=== PATIENT | female | born 1975 | race Two or more races ===

== ENCOUNTER 2016-11-03 06:08 | Emergency (ER) | payer OTHER ==
[2016-11-03 06:46] VITALS: BP 137/68; PULSE 77; TEMP 97.9; BMI 32.1
--- NOTE | 2016-11-03 07:23 | PDOC ---
History of Present Illness - General Chief Complaint: Pain, Acute Stated Complaint: NECK PAIN Time Seen by Provider: 11/03/16 07:21 History Source: Patient Exam Limitations: No Limitations - History of Present Illness Initial Comments: CHIEF COMPLAINT: HISTORY OF PRESENT ILLNESS: Vital signs on arrival are within normal limits. REVIEW OF SYSTEMS: GENERAL/CONSTITUTIONAL: Subjective fever/chills. No weakness. No weight change. HEAD, EYES, EARS, NOSE AND THROAT: No change in vision. No ear pain or discharge. No sore throat. MUSCULOSKELETAL: No joint or muscle swelling or pain. No neck or back pain. SKIN: No rash or easy bruising. NEUROLOGIC: No headache, vertigo, loss of consciousness, or loss of sensation. PHYSICAL EXAM: GENERAL: The patient is awake, alert, and fully oriented, in no acute distress. HEAD: Normal with no signs of trauma. ENT: Pupils equal, round and reactive to light, extraocular movements intact, sclera anicteric, conjunctiva clear. Neck supple. EXTREMITIES: Normal range of motion, no edema. NEUROLOGICAL: Normal speech, normal gait. CN II-XII grossly intact. PSYCH: Normal mood, normal affect. SKIN: Warm, dry, normal turgor, no rashes or lesions noted. Past History - Past Medical History Allergies/Adverse Reactions: Allergies Allergy/AdvReac Type Severity Reaction Status Date / Time No Known Allergies Allergy Verified 11/03/16 06:15 Home Medications: Ambulatory Orders NK [No Known Home Medication] 11/03/16 - Reproductive History (#): 6 Para: 4 Therapeutic (s) & number: Yes (2 elective) - Immunization History Td Vaccination: Yes Immunization Up to Date: Yes (flu) - Psycho/Social/Smoking Cessation Hx Anxiety: No Suicidal Ideation: No Smoking Status: No Smoking History: Current every day smoker Number of Cigarettes Smoked Daily: 10 Information on smoking cessation initiated: No Hx Alcohol Use: No Drug/Substance Use Hx: No Substance Use Type: None *Physical Exam - Vital Signs Last Vital Signs Temp Pulse Resp BP Pulse Ox 97.9 F 77 14 137/68 99 11/03/16 06:15 11/03/16 06:15 11/03/16 06:15 11/03/16 06:15 11/03/16 06:15 Medical Decision Making - Medical Decision Making A/P:
--- NOTE | 2016-11-03 08:05 | PDOC ---
History of Present Illness - General Chief Complaint: Pain, Acute Stated Complaint: NECK PAIN Time Seen by Provider: 11/03/16 07:21 History Source: Patient Exam Limitations: No Limitations - History of Present Illness Initial Comments: CHIEF COMPLAINT: 41 y/o afebrile female with no significant PMH c/o left sided neck pain radiating down her left arm x 1 week. HISTORY OF PRESENT ILLNESS: The patient states she does a lot of heavy lifting and last week while lifting something she started feeling the pain in the left side of her neck. Over the past 1 week she has continued to lift despite the pain. She states she took Motrin for 1 day in the middle of the week. She denies trauma, f/c, n/v/d, CP, SOB, numbness/tingling in extremities. Vital signs on arrival are within normal limits. REVIEW OF SYSTEMS: GENERAL/CONSTITUTIONAL: No fever/chills. No weakness. No weight change. HEAD, EYES, EARS, NOSE AND THROAT: No change in vision. No ear pain or discharge. No sore throat. MUSCULOSKELETAL: +left arm pain. No back pain. +left sided neck pain. SKIN: No rash or easy bruising. NEUROLOGIC: No headache, vertigo, loss of consciousness, or loss of sensation. PHYSICAL EXAM: GENERAL: The patient is awake, alert, and fully oriented, in no acute distress. She is well appearing and ambulatory. HEAD: Normal with no signs of trauma. NECK: No midline cervical spine TTP or step offs. Reproducible pain with palpation of left cervical paravertebral muscles at level of C5-C6. ENT: Pupils equal, round and reactive to light, extraocular movements intact, sclera anicteric, conjunctiva clear. Neck supple. EXTREMITIES: Normal range of motion, no edema. NEUROLOGICAL: Normal speech, normal gait. CN II-XII grossly intact. SKIN: Warm, dry, normal turgor, no rashes or lesions noted. Past History - Past Medical History Allergies/Adverse Reactions: Allergies Allergy/AdvReac Type Severity Reaction Status Date / Time No Known Allergies Allergy Verified 11/03/16 06:15 Home Medications: Ambulatory Orders NK [No Known Home Medication] 11/03/16 - Reproductive History (#): 6 Para: 4 Therapeutic (s) & number: Yes (2 elective) - Immunization History Td Vaccination: Yes Immunization Up to Date: Yes (flu) - Psycho/Social/Smoking Cessation Hx Anxiety: No Suicidal Ideation: No Smoking Status: No Smoking History: Current every day smoker Number of Cigarettes Smoked Daily: 10 Information on smoking cessation initiated: No Hx Alcohol Use: No Drug/Substance Use Hx: No Substance Use Type: None *Physical Exam - Vital Signs Last Vital Signs Temp Pulse Resp BP Pulse Ox 97.9 F 77 14 137/68 99 11/03/16 06:15 11/03/16 06:15 11/03/16 06:15 11/03/16 06:15 11/03/16 06:15 Medical Decision Making - Medical Decision Making A/P: 41 y/o female with cervical radiculopathy. The patient does not want to wait for hcg. Provided discharge instructions including 600mg of Motrin every 6 hours with food, no heavy lifting, massage/heat to the affected area and f/u with the patient's PCP this week if no improvement in symptoms. The patient verbalizes understanding of all instructions, has no further questions and is awaiting discharge. *DC/Admit/Observation/Transfer Diagnosis at time of Disposition: Cervical radiculopathy - Discharge Dispostion Disposition: HOME Condition at time of disposition: Good - Referrals Referrals: Stefany Wills [Primary Care Provider] - - Patient Instructions Printed Discharge Instructions: DI for Cervical Radiculopathy Additional Instructions: Discharge Instructions: -Take 600mg of over the counter Ibuprofen every 6 hours for pain with food -Apply heat and massage to the affected area to help with pain -Avoid heavy lifting until symptoms improved -Follow up with your doctor in 5-7 days if no improvement in symptoms
== END 2016-11-03 08:17 | disposition home or self-care (01) ==
LOC: JER 06:08
DX: M54.12 Radiculopathy, cervical region (principal)
CPT/HCPCS: 84703; 99282-25

== ENCOUNTER 2017-01-14 09:01 | Emergency (ER) | payer OTHER ==
[2017-01-14 09:06] VITALS: BP 134/89; PULSE 78; TEMP 98.4; BMI 32.4
[2017-01-14] MEDS ORDERED: ALBUTEROL SO4 2.5/IPRATROPIUM 0.5 INH SOL 3 ML VIAL.NEB. NEB STA (09:35)
[2017-01-14] MEDS ORDERED: ALBUTEROL SO4 2.5/IPRATROPIUM 0.5 INH SOL 3 ML VIAL.NEB. NEB ONE ×3 (10:26→11:03)
[2017-01-14] MEDS ORDERED: predniSONE 20 MG TABLET (UD) PO ONE (10:59)
[2017-01-14] MEDS ORDERED: predniSONE 20 MG TABLET (UD) ONE (11:02)
--- NOTE | 2017-01-14 11:32 | PDOC ---
History of Present Illness - General Chief Complaint: Asthma Stated Complaint: ASTHMA Time Seen by Provider: 01/14/17 09:19 History Source: Patient Exam Limitations: No Limitations - History of Present Illness Initial Comments: 01/14/17 11:24 42 yr female with c/o cough wheezing for one week. Pt has history of asthma , no intubations. Pt denies fever or sick contacts. Timing/Duration: reports: week Severity: reports: moderate Possible Cause: Yes: occasional episodes Past History - Past Medical History Allergies/Adverse Reactions: Allergies Allergy/AdvReac Type Severity Reaction Status Date / Time No Known Allergies Allergy Verified 01/14/17 09:06 Home Medications: Ambulatory Orders Albuterol Sulfate Inhaler - [Ventolin HFA Inhaler -] 1 - 2 inh PO Q4H #1 inhaler 01/14/17 Azithromycin [Zithromax 250mg Tablets -] 250 mg PO UTDICT #6 tab 01/14/17 Prednisone [Deltasone -] 40 mg PO DAILY #10 tablet 01/14/17 Asthma: Yes - Reproductive History LMP comment: 01/06/17 LMP Normal: Yes Is Patient Now?: No (#): 6 Para: 4 Therapeutic (s) & number: Yes (2 elective) - Immunization History Td Vaccination: Yes Immunization Up to Date: Yes (flu) - Psycho/Social/Smoking Cessation Hx Anxiety: No Suicidal Ideation: No Smoking Status: No Smoking History: Current every day smoker Number of Cigarettes Smoked Daily: 10 Information on smoking cessation initiated: No Hx Alcohol Use: Yes (SOCIAL) Drug/Substance Use Hx: No Substance Use Type: None Respiratory Specific PMHX - Complaint Specific PMHX Angina: No Bronchitis: No Pneumonia: No Pulmonary Embolus: No TB (Tuberculosis): No Review of Systems - Review of Systems Able to Perform ROS?: Yes Is the patient limited Turkish proficient: No Constitutional: No: Symptoms Reported HEENTM: No: Symptoms Reported Respiratory: Yes: Cough *Physical Exam - Vital Signs Last Vital Signs Temp Pulse Resp BP Pulse Ox 98.4 F 78 18 134/89 98 01/14/17 09:03 01/14/17 09:03 01/14/17 09:03 01/14/17 09:03 01/14/17 09:03 - Physical Exam General Appearance: Yes: Nourished, Appropriately Dressed HEENT: positive: EOMI, NICOLA, Normal ENT Inspection, TMs Normal, Pharynx Normal Neck: positive: Supple Respiratory/Chest: positive: Normal Breath Sounds, Rhonchi, Wheezing Cardiovascular: positive: Regular Rhythm, Regular Rate ED Treatment Course - Medications Given in the ED: ED Medications Discontinued Medications Generic Name Dose Route Start Last Admin Trade Name Socrates PRN Reason Stop Dose Admin Albuterol/Ipratropium 1 amp 01/14/17 09:35 01/14/17 09:38 Duoneb - NEB 01/14/17 09:36 1 amp Q15M STA Administration Albuterol/Ipratropium 1 amp 01/14/17 10:59 01/14/17 11:04 Duoneb - NEB 01/14/17 11:00 1 amp ONCE ONE Administration Prednisone 60 mg 01/14/17 10:59 01/14/17 11:04 Deltasone - PO 01/14/17 11:00 60 mg ONCE ONE Administration Progress Note - Progress Note Progress Note: pt improved after the nebulizers will dc home with strict follow up pt understands the plan of care Medical Decision Making - Medical Decision Making 01/16/17 07:25 cc: wheezing, cough , afebrile no acute distress, stable vitals *DC/Admit/Observation/Transfer Diagnosis at time of Disposition: Bronchitis - Discharge Dispostion Disposition: HOME Condition at time of disposition: Good - Prescriptions Prescriptions: Prednisone [Deltasone -] 40 mg PO DAILY #10 tablet Albuterol Sulfate Inhaler - [Ventolin HFA Inhaler -] 1 - 2 inh PO Q4H #1 inhaler Azithromycin [Zithromax 250mg Tablets -] 250 mg PO UTDICT #6 tab - Referrals Referrals: Stefany Wills [Primary Care Provider] - - Patient Instructions Additional Instructions: use the inhaler as directed take next dose of prednisone tomorrow morning start the Zpack today drink pleanty of fluids to stay hydrated follow with your doctor in 1-3 days for follow up rest at home and also take motrin as needed for any pain return to ER if any worsening symptoms
== END 2017-01-14 11:39 | disposition home or self-care (01) ==
LOC: JERFT 09:01
PROC: 3E0F7GC Introduction of Other Therapeutic Substance into Respiratory Tract, Via Natural or Artificial Opening (ICD-10-PCS; principal; 2017-01-14)
PROC: 3E0F7GC Introduction of Other Therapeutic Substance into Respiratory Tract, Via Natural or Artificial Opening (ICD-10-PCS; 2017-01-14)
DX: J20.9 Acute bronchitis, unspecified (principal); J45.909 Unspecified asthma, uncomplicated
CPT/HCPCS: 94640; 99281-25

== ENCOUNTER 2018-03-22 11:45 | Emergency (ER) | payer OTHER ==
[2018-03-22 11:53] VITALS: BP 135/77; PULSE 79; TEMP 98; BMI 31.3
--- NOTE | 2018-03-22 12:18 | PDOC ---
History of Present Illness - General Chief Complaint: Urinary Problem Stated Complaint: URINARY PROBLEM Time Seen by Provider: 03/22/18 12:02 History Source: Patient Exam Limitations: No Limitations - History of Present Illness Initial Comments: CHIEF COMPLAINT: 43 y/o afebrile female with no significant PMH c/o dysuria x 1 week. HISTORY OF PRESENT ILLNESS: She is unsure if the bleeding is coming from the urine or because she is currently menstruating. She denies fever, chills, n/v/d , CP, SOB, abd pain, back pain, abnormal vaginal discharge, genital lesions. Vital signs on arrival are within normal limits. REVIEW OF SYSTEMS: GENERAL/CONSTITUTIONAL: No fever GASTROINTESTINAL: No abd pain. GENITOURINARY: +dysuria. MUSCULOSKELETAL: No joint or muscle swelling or pain. No neck or back pain. PHYSICAL EXAM: GENERAL: The patient is awake, alert, and fully oriented, in no acute distress. She is well appearing and ambulatory. HEAD: Normal with no signs of trauma. ABDOMEN: Soft, non-distended, non-tender even to deep palpation, no hepatomegaly or splenomegaly, no masses. No flank pain with palpation. BACK: No CVA TTP b/l. Past History - Past Medical History Allergies/Adverse Reactions: Allergies Allergy/AdvReac Type Severity Reaction Status Date / Time No Known Allergies Allergy Verified 03/22/18 11:53 Home Medications: Ambulatory Orders Nitrofurantoin Monohyd/M-Cryst [Macrobid -] 100 mg PO BID #14 capsule 03/22/18 Asthma: Yes COPD: No - Reproductive History (#): 6 Para: 4 Therapeutic (s) & number: Yes (2 elective) - Immunization History Td Vaccination: Yes Immunization Up to Date: Yes (flu) - Suicide/Smoking/Psychosocial Hx Smoking Status: No Smoking History: Current every day smoker Number of Cigarettes Smoked Daily: 20 Information on smoking cessation initiated: No Hx Alcohol Use: Yes (SOCIAL) Drug/Substance Use Hx: No Substance Use Type: None *Physical Exam - Vital Signs Last Vital Signs Temp Pulse Resp BP Pulse Ox 98 F 79 18 135/77 100 03/22/18 11:52 03/22/18 11:52 03/22/18 11:52 03/22/18 11:52 03/22/18 11:52 Medical Decision Making - Medical Decision Making A/P: 43 y/o female with dysuria x 1 week. She is concerned for UTI and is requesting STD testing. Plan is as follows: 1. UA/hcg/culture 2. GC/chlamydia hcg - negative UA + for UTI. Will send rx for macrobid. Patient does not want to be treated for STD at this time - would prefer to wait for results. Patient instructed to drink at least 64oz of water daily, follow up with Dr. Wills next week and return to the ER with any worsening or concerning symptoms. The patient verbalizes understanding of all instructions, has no further questions and is awaiting discharge. *DC/Admit/Observation/Transfer Diagnosis at time of Disposition: UTI (urinary tract infection) Qualifiers: Urinary tract infection type: acute cystitis Hematuria presence: with hematuria Qualified Code(s): N30.01 - Acute cystitis with hematuria - Discharge Dispostion Disposition: HOME Condition at time of disposition: Good - Prescriptions Prescriptions: Nitrofurantoin Monohyd/M-Cryst [Macrobid -] 100 mg PO BID #14 capsule - Referrals Referrals: Stefany Wills [Primary Care Provider] - - Patient Instructions Printed Discharge Instructions: DI for Urinary Tract Infection (UTI) Additional Instructions: Discharge Instructions: -You have a urinary tract infection -A prescription for antibiotics has been sent to your pharmacy; please take for entire 7 days -Drink at least 64oz of water daily -Follow up with Dr. Wills within 1 week -Return to the ER with any worsening or concerning symptoms. - Post Discharge Activity
[2018-03-22 12:57] LABS: URINE APPEARANCE SLCLOUDY; URINE BILIRUBIN NEGATIVE (<2.0 mg/dL); URINE BLOOD 1+ (NEGATIVE); URINE COLOR LTYELLOW; URINE GLUCOSE (UA) NEGATIVE (NEGATIVE); URINE KETONE NEGATIVE (NEGATIVE); URINE NITRITE NEGATIVE (NEGATIVE); URINE UROBILINOGEN NEGATIVE mg/dL (0.2-1.0)
[2018-03-22 13:01] LABS: HCG,QUALITATIVE URINE NEGATIVE
[2018-03-22 13:03] LABS: URINE LEUK ESTERASE 2+ (NEGATIVE); URINE PROTEIN 2+ (NEGATIVE)
[2018-03-22 13:05] LABS: EPI CELLS RARE /HPF (FEW); URINE MUCUS RARE
== END 2018-03-22 13:26 | disposition home or self-care (01) ==
LOC: JERFT 11:45
DX: N30.01 Acute cystitis with hematuria (principal)
CPT/HCPCS: 36415; 81003; 81015; 84703; 87086; 87491; 87591; 99281-25

== ENCOUNTER 2021-07-03 08:21 | Emergency (ER) | payer OTHER ==
[2021-07-03 08:29] VITALS: BP 138/61; PULSE 70; TEMP 98.4; BMI 34.2
[2021-07-03] MEDS ORDERED: ALBUTEROL SO4 2.5/IPRATROPIUM 0.5 INH SOL 3 ML VIAL.NEB. NEB ONE (09:41)
== END 2021-07-03 10:10 | disposition home or self-care (01) ==
LOC: JER 08:21
PROC: 3E0F7GC Introduction of Other Therapeutic Substance into Respiratory Tract, Via Natural or Artificial Opening (ICD-10-PCS; principal; 2021-07-03)
DX: H10.13 Acute atopic conjunctivitis, bilateral (principal); J06.9 Acute upper respiratory infection, unspecified; R05 Cough; Z11.52 Encounter for screening for COVID-19
CPT/HCPCS: 71046-TC-FY; 99284-25; C9803; U0003; U0005

== ENCOUNTER 2021-07-24 20:18 | Emergency (ER) | payer OTHER ==
[2021-07-24 21:08] VITALS: BP 121/59; PULSE 85; TEMP 98.6; BMI 39.0
[2021-07-24 21:19] LABS: BASO % 0.7 % (0-2.0); EOS % 2.9 % (0-4.5); HEMATOCRIT 30.4 % (32.4-45.2); HEMOGLOBIN 9.4 GM/dL (10.7-15.3); MCHC 30.9 g/dl (32.0-36.0); MEAN CELL VOLUME 61.1 fl (80-96); MEAN PLT VOLUME 8.2 fl (7.5-11.1); MONO % 10.5 % (3.8-10.2); NEUT % 66.9 % (42.8-82.8); PLATELET COUNT 389 10^3/uL (134-434); RBC 4.98 M/mm3 (3.60-5.2); WHITE BLOOD COUNT 11.8 K/mm3 (4.0-10.0)
[2021-07-24 21:25] LABS: MCH 18.9 pg (25.7-33.7)
[2021-07-24 21:42] LABS: ANISOCYTOSIS 3+; MACROCYTOSIS 1+; PLATELET ESTIMATE NORMAL
[2021-07-24 21:46] LABS: CALCIUM 8.6 mg/dL (8.5-10.1)
[2021-07-24 21:47] LABS: ALBUMIN 2.9 g/dl (3.4-5.0); BLOOD UREA NITROGEN 8.8 mg/dL (7-18)
[2021-07-24 21:50] LABS: CREATININE 0.7 mg/dL (0.55-1.3)
[2021-07-24 21:51] LABS: BILIRUBIN,TOTAL 0.2 mg/dL (0.2-1); TOT PROT 6.9 g/dl (6.4-8.2)
[2021-07-24 21:58] LABS: EPI CELLS 6 /uL (0-25.1); HYALINE CASTS 0 /uL (0-3.1); URINE APPEARANCE CLEAR; URINE BACTERIA 65 /uL (0-1359); URINE BILIRUBIN NEGATIVE (NEGATIVE); URINE COLOR YELLOW; URINE GLUCOSE (UA) NEGATIVE (NEGATIVE); URINE KETONE NEGATIVE (NEGATIVE); URINE LEUK ESTERASE NEGATIVE (NEGATIVE); URINE NITRITE NEGATIVE (NEGATIVE); URINE PROTEIN 1+ (NEGATIVE); URINE RBC 3 /uL (0-23.9); URINE WBC 2 /uL (0-25.8)
[2021-07-24 22:02] LABS: HCG,QUALITATIVE URINE Negative
== END 2021-07-24 22:29 | disposition home or self-care (01) ==
LOC: JER 20:18 → JERFT 20:18
DX: R05.1 Acute cough (principal); J06.9 Acute upper respiratory infection, unspecified; Z11.52 Encounter for screening for COVID-19
CPT/HCPCS: 36415; 80053; 81003; 83690; 84703; 85025; 87086; 99283-25; C9803; U0003; U0005

== ENCOUNTER 2021-09-22 03:12 | Emergency (ER) | payer OTHER ==
[2021-09-22 03:21] VITALS: BP 141/85; PULSE 80; TEMP 98.1; BMI 31.3
[2021-09-22] MEDS ORDERED: ALBUTEROL SO4 HFA INHALER IH PRN (03:59)
[2021-09-22] MEDS ORDERED: ALBUTEROL SO4 HFA INHALER IH ONE (04:11)
[2021-09-22] MEDS ORDERED: IBUPROFEN 600 MG TABLET (FP) PO ONE ×2 (04:20→04:21)
== END 2021-09-22 05:30 | disposition home or self-care (01) ==
LOC: JER 03:12
PROC: 3E0F7GC Introduction of Other Therapeutic Substance into Respiratory Tract, Via Natural or Artificial Opening (ICD-10-PCS; principal; 2021-09-22)
DX: J06.9 Acute upper respiratory infection, unspecified (principal)
CPT/HCPCS: 87804; 87807; 99284-25; C9803; U0003; U0005

== ENCOUNTER 2022-09-02 12:47 | Inpatient (IN) | payer OTHER ==
[2022-09-02] MEDS ORDERED: ALBUTEROL SO4 2.5/IPRATROPIUM 0.5 INH SOL 3 ML VIAL.NEB. NEB ONE (14:07)
[2022-09-02] MEDS: ALBUTEROL SO4 2.5/IPRATROPIUM 0.5 INH SOL 3 ML VIAL.NEB. NEB SCH ×4 (14:40→15:12)
[2022-09-02 15:07] LABS: HEMATOCRIT 23.2 % (32.4-45.2); LYMPH % 9.7 % (8-40); MCHC 30.2 g/dl (32.0-36.0); MEAN CELL VOLUME 53.5 fl (80-96); MEAN PLT VOLUME 8.2 fl (7.5-11.1); MONO % 4.9 % (3.8-10.2); NEUT % 84.4 % (42.8-82.8); PLATELET COUNT 376 10^3/uL (134-434); RBC 4.34 M/mm3 (3.60-5.2); RDW 21.5 % (11.6-15.6); WHITE BLOOD COUNT 10.3 K/mm3 (4.0-10.0)
[2022-09-02 15:08] LABS: MCH 16.2 pg (25.7-33.7)
[2022-09-02 15:26] LABS: INR 1.03 (0.83-1.09); PROTHROMBIN TIME (PATIENT) 11.9 SEC (9.7-13.0)
[2022-09-02 15:28] LABS: ACTIVATED PTT 28.5 SECONDS (25.2-36.5)
[2022-09-02 15:33] LABS: CHLORIDE 107 mmol/L (98-107); SODIUM 141 mmol/L (136-145)
[2022-09-02 15:36] LABS: ALBUMIN 3.2 g/dl (3.4-5.0); ANION GAP 8 MMOL/L (8-16); CO2 26 mmol/L (21-32); GLUCOSE,RANDOM 84 mg/dL (74-106); LIPASE 141 U/L (73-393)
[2022-09-02 15:37] LABS: BLOOD UREA NITROGEN 9.1 mg/dL (7-18)
[2022-09-02 15:39] LABS: CREATININE 0.7 mg/dL (0.55-1.3); SGOT/AST 14 U/L (15-37); SGPT/ALT 17 U/L (13-61)
[2022-09-02 15:40] LABS: ANISOCYTOSIS 3+; MACROCYTOSIS 0; PLATELET ESTIMATE INCREASED
[2022-09-02 15:42] LABS: ALK PHOS 66 U/L (45-117); BILIRUBIN,TOTAL 0.2 mg/dL (0.2-1); TOT PROT 6.5 g/dl (6.4-8.2)
[2022-09-02] MEDS ORDERED: ACETAMINOPHEN 1000 MG/100 ML BAG IVPB ONE (16:50)
[2022-09-02] MEDS ORDERED: ACETAMINOPHEN INJECTION 100 ML IVPB ONE (16:50)
[2022-09-02] MEDS ORDERED: diphenhydrAMINE HCL 25 MG CAPSULE (FP) PO ONE ×2 (19:43→20:20)
[2022-09-02 22:32] LABS: LDH 193 U/L (84-246)
[2022-09-02 22:33] LABS: IRON SERUM 14 ug/dL (50-175); TOTAL IRON BINDING CAPACITY 427 ug/dL (250-450)
[2022-09-02 22:43] LABS: RETICULOCYTES 1.69 % (0.5-1.5)
[2022-09-02] MEDS: PANTOPRAZOLE SODIUM 40 MG VIAL IVPUSH SCH (23:24)
[2022-09-02] MEDS ORDERED: ACETAMINOPHEN 325 MG TABLET (FP) PO PRN (23:58)
[2022-09-03 07:28] LABS: BASO % 0.8 % (0-2.0); EOS % 2.6 % (0-4.5); HEMATOCRIT 25.2 % (32.4-45.2); LYMPH % 22.7 % (8-40); MCHC 31.7 g/dl (32.0-36.0); MEAN CELL VOLUME 57.1 fl (80-96); MEAN PLT VOLUME 8.3 fl (7.5-11.1); MONO % 14.1 % (3.8-10.2); NEUT % 59.8 % (42.8-82.8); PLATELET COUNT 340 10^3/uL (134-434); RBC 4.42 M/mm3 (3.60-5.2); WHITE BLOOD COUNT 7.8 K/mm3 (4.0-10.0)
[2022-09-03 07:34] LABS: MCH 18.1 pg (25.7-33.7)
[2022-09-03 07:43] LABS: BLOOD UREA NITROGEN 5.6 mg/dL (7-18); CALCIUM 7.8 mg/dL (8.5-10.1)
[2022-09-03 07:47] LABS: CREATININE 0.6 mg/dL (0.55-1.3); PHOSPHOROUS 2.9 mg/dL (2.5-4.9)
[2022-09-03 07:48] LABS: BILIRUBIN,TOTAL 0.3 mg/dL (0.2-1); TOT PROT 6.1 g/dl (6.4-8.2)
[2022-09-03] MEDS ORDERED: OSELTAMIVIR PHOSPHATE 75 MG CAPSULE PO ONE (09:00)
[2022-09-03] MEDS ORDERED: PANTOPRAZOLE SODIUM 40 MG VIAL ONE (10:56)
[2022-09-03] MEDS ORDERED: NICOTINE 7 MG/24 HOURS TOPICAL PATCH TD ONE (10:56)
[2022-09-03] MEDS: NICOTINE 7 MG/24 HOURS TOPICAL PATCH TD SCH (11:00)
[2022-09-03] MEDS ORDERED: IRON SUCROSE INJECTION 200 MG in SODIUM CHLORIDE 90 ML IVPB ONE (12:00)
[2022-09-03] MEDS: PANTOPRAZOLE SODIUM 40 MG VIAL IVPUSH SCH (12:08)
[2022-09-03] MEDS ORDERED: FAMOTIDINE 20 MG TABLET ONE (13:17)
[2022-09-03] MEDS: FAMOTIDINE 20 MG TABLET PO SCH (13:18)
[2022-09-03] MEDS ORDERED: BISACODYL 5 MG TABLET.DR (FP) PO ONE (16:00)
[2022-09-03] MEDS ORDERED: PEG 3350/NA SULF BICARB CL/KCL 4000 ML SOLN.RECON PO ONE (17:00)
[2022-09-03] MEDS ORDERED: PIPERACILLIN/TAZOB 3.375 GM 3.375 GM/50 ML BAG IVPB ONE (17:09)
[2022-09-03] MEDS: PIPERACILLIN/TAZOB 3.375 GM 3.375 GM in DEXTROSE 5%-WATER - 50 ML IVPB SCH (17:13)
[2022-09-03] MEDS: busPIRone HCL 10 MG TABLET (FP) PO SCH (22:27)
[2022-09-04] MEDS: PIPERACILLIN/TAZOB 3.375 GM 3.375 GM in DEXTROSE 5%-WATER - 50 ML IVPB SCH ×3 (01:44→18:54)
[2022-09-04 05:46] VITALS: BMI 27.1
[2022-09-04] MEDS ORDERED: IRON SUCROSE INJECTION 200 MG in SODIUM CHLORIDE 90 ML IVPB ONE (08:00)
[2022-09-04] MEDS: FAMOTIDINE 20 MG TABLET PO SCH (09:38)
[2022-09-04] MEDS: busPIRone HCL 10 MG TABLET (FP) PO SCH ×2 (09:38→22:07)
[2022-09-04 10:56] LABS: BASO % 0.7 % (0-2.0); EOS % 4.4 % (0-4.5); HEMATOCRIT 28.2 % (32.4-45.2); HEMOGLOBIN 8.6 GM/dL (10.7-15.3); MCHC 30.4 g/dl (32.0-36.0); MEAN CELL VOLUME 57.3 fl (80-96); MEAN PLT VOLUME 8.7 fl (7.5-11.1); NEUT % 60.9 % (42.8-82.8); PLATELET COUNT 413 10^3/uL (134-434); RBC 4.92 M/mm3 (3.60-5.2); RDW 23.2 % (11.6-15.6); WHITE BLOOD COUNT 8.3 K/mm3 (4.0-10.0)
[2022-09-04 10:57] LABS: MCH 17.5 pg (25.7-33.7)
[2022-09-04 11:03] LABS: INR 1.18 (0.83-1.09); PROTHROMBIN TIME (PATIENT) 13.6 SEC (9.7-13.0)
[2022-09-04 11:24] LABS: CALCIUM 8.6 mg/dL (8.5-10.1)
[2022-09-04 11:25] LABS: BLOOD UREA NITROGEN 4.3 mg/dL (7-18)
[2022-09-04 11:28] LABS: CREATININE 0.7 mg/dL (0.55-1.3)
[2022-09-04] MEDS: NICOTINE 7 MG/24 HOURS TOPICAL PATCH TD SCH (16:12)
[2022-09-05] MEDS: PIPERACILLIN/TAZOB 3.375 GM 3.375 GM in DEXTROSE 5%-WATER - 50 ML IVPB SCH ×3 (01:26→17:33)
[2022-09-05] MEDS ORDERED: IRON SUCROSE INJECTION 200 MG in SODIUM CHLORIDE 90 ML IVPB ONE (08:00)
[2022-09-05 10:51] LABS: HEMATOCRIT 30.8 % (32.4-45.2); HEMOGLOBIN 9.1 GM/dL (10.7-15.3); MCHC 29.6 g/dl (32.0-36.0); MEAN CELL VOLUME 58.2 fl (80-96); MEAN PLT VOLUME 8.7 fl (7.5-11.1); PLATELET COUNT 494 10^3/uL (134-434); RBC 5.29 M/mm3 (3.60-5.2); RDW 23.2 % (11.6-15.6); WHITE BLOOD COUNT 9.8 K/mm3 (4.0-10.0)
[2022-09-05 10:52] LABS: MCH 17.2 pg (25.7-33.7)
[2022-09-05] MEDS: FAMOTIDINE 20 MG TABLET PO SCH (11:26)
[2022-09-05] MEDS: busPIRone HCL 10 MG TABLET (FP) PO SCH ×2 (11:27→22:24)
[2022-09-05] MEDS: NICOTINE 7 MG/24 HOURS TOPICAL PATCH TD SCH (11:28)
[2022-09-05] MEDS: OSELTAMIVIR PHOSPHATE 75 MG CAPSULE PO SCH ×2 (11:42→22:24)
[2022-09-06] MEDS: PIPERACILLIN/TAZOB 3.375 GM 3.375 GM in DEXTROSE 5%-WATER - 50 ML IVPB SCH ×2 (03:00→11:12)
[2022-09-06] MEDS: OSELTAMIVIR PHOSPHATE 75 MG CAPSULE PO SCH ×2 (11:11→21:31)
[2022-09-06] MEDS: busPIRone HCL 10 MG TABLET (FP) PO SCH ×2 (11:11→21:31)
[2022-09-06] MEDS: FAMOTIDINE 20 MG TABLET PO SCH (11:11)
[2022-09-06] MEDS: NICOTINE 7 MG/24 HOURS TOPICAL PATCH TD SCH (11:12)
[2022-09-06] MEDS: POLYETHYLENE GLYCOL (HEALTHYLAX) 3350 17 GM PACKET PO SCH (11:12)
[2022-09-06] MEDS: AMOX TR/POT CLAV 875MG/125MG TABLETS (FP) PO SCH (17:35)
[2022-09-07] MEDS: FAMOTIDINE 20 MG TABLET PO SCH (10:08)
[2022-09-07] MEDS: NICOTINE 7 MG/24 HOURS TOPICAL PATCH TD SCH (10:08)
[2022-09-07] MEDS: AMOX TR/POT CLAV 875MG/125MG TABLETS (FP) PO SCH (10:08)
[2022-09-07] MEDS: busPIRone HCL 10 MG TABLET (FP) PO SCH (10:08)
[2022-09-07] MEDS: POLYETHYLENE GLYCOL (HEALTHYLAX) 3350 17 GM PACKET PO SCH (10:08)
[2022-09-07] MEDS: OSELTAMIVIR PHOSPHATE 75 MG CAPSULE PO SCH (10:08)
[2022-09-07 14:28] VITALS: BP 138/93; PULSE 74; RESP 20; TEMP 98.8
== END 2022-09-07 14:29 | disposition home or self-care (01) | DRG 240 ==
LOC: JER 12:47 → JERBED 20:55 → J8W 09-03 19:16
PROVIDERS: ADMIT Internal Medicine
PROC: 30233N1 Transfusion of Nonautologous Red Blood Cells into Peripheral Vein, Percutaneous Approach (ICD-10-PCS; 2022-09-02)
PROC: 0DBM8ZX Excision of Descending Colon, Via Natural or Artificial Opening Endoscopic, Diagnostic (ICD-10-PCS; principal; 2022-09-04 12:30)
DX: C18.9 Malignant neoplasm of colon, unspecified (principal); J09.X2 Influenza due to identified novel influenza A virus with other respiratory manifestations; D50.9 Iron deficiency anemia, unspecified; F17.210 Nicotine dependence, cigarettes, uncomplicated; K57.92 Diverticulitis of intestine, part unspecified, without perforation or abscess without bleeding; K92.1 Melena; F50.89 Other specified eating disorder; F41.9 Anxiety disorder, unspecified; J45.909 Unspecified asthma, uncomplicated; K64.8 Other hemorrhoids
CPT/HCPCS: 0241U-QW; 36415; 36430; 71045-TC-FY; 71260-TC; 74177-TC; 80048; 80053; 82272; 82378; 82728; 83540; 83550; 83615; 83690; 83735; 84100; 84466; 84702; 85025; 85027; 85045; 85610; 85730; 86140; 86850; 86900; 86901; 86922; 88305-TC; 93005; 93010; 99285-25; G0396; J1756; P9058; Q9967

== ENCOUNTER 2022-09-18 04:16 | Inpatient (IN) | payer OTHER ==
[2022-09-17 10:17] VITALS: BMI 26.6
[~2022-09-18 04:16] MED LIST: BUPIVACAINE HCL/PF 0.25% (2.5MG/ML) 10 ML VIAL IJ ONE
[2022-09-18] MEDS ORDERED: ERTAPENEM SODIUM 1 GM in SODIUM CHLORIDE 50 ML IVPB ONE (06:53)
[2022-09-18] MEDS ORDERED: ERTAPENEM SODIUM 1 GM VIAL ONE (07:18)
[2022-09-18] MEDS ORDERED: ONDANSETRON 4 MG/2 ML VIAL IVPUSH PRN ×2 (10:03→15:21)
[2022-09-18] MEDS ORDERED: BUPIVACAINE HCL/PF 0.25% (2.5MG/ML) 10 ML VIAL ONE (10:10)
[2022-09-18] MEDS ORDERED: INDOCYANINE GREEN 25 MG/10 ML VIAL IVPUSH ONE (10:10)
[2022-09-18] MEDS ORDERED: cefOXitin SODIUM 2 GM VIAL (RESTRICTED TO ID) IVPB ONE ×2 (10:10→11:06)
[2022-09-18] MEDS ORDERED: LACTATED RINGERS SOLUTION 1,000 ML IV SCH (10:15)
[2022-09-18] MEDS ORDERED: HEPARIN NA (PORCINE) 5,000 UNITS/ML 1ML VIAL ONE (10:19)
[2022-09-18] MEDS ORDERED: ALBUTEROL SO4 HFA INHALER IH ONE (10:26)
[2022-09-18] MEDS ORDERED: LIDOCAINE HCL/PF 2% SDV 5ML VIAL ONE (10:27)
[2022-09-18] MEDS ORDERED: MIDAZOLAM HCL 2 MG/2 ML SINGLE DOSE VIAL ONE (10:27)
[2022-09-18] MEDS ORDERED: GLYCOPYRROLATE 0.2 MG/1 ML VIAL ONE ×2 (10:27→11:22)
[2022-09-18] MEDS ORDERED: ONDANSETRON 4 MG/2 ML VIAL ONE ×2 (10:27→15:12)
[2022-09-18] MEDS ORDERED: DEXAMETHASONE SOD PHOSPHATE 4 MG/1 ML VIAL ONE (10:27)
[2022-09-18] MEDS ORDERED: FENTANYL CITRATE/PF 50 MCG/ML VIAL ONE ×9 (10:27→15:51)
[2022-09-18] MEDS ORDERED: PROPOFOL 20 ML ONE ×2 (10:27→14:34)
[2022-09-18] MEDS ORDERED: ROCURONIUM BROMIDE 50 MG/5 ML SYRINGE ONE ×2 (10:57→11:37)
[2022-09-18] MEDS ORDERED: SUCCINYLCHOLINE CHLORIDE 200 MG/10 ML SYRINGE ONE (10:58)
[2022-09-18] MEDS ORDERED: BUPIVACAINE HCL/PF 0.25% (2.5MG/ML) 10 ML VIAL IJ ONE (11:40)
[2022-09-18] MEDS ORDERED: NEOSTIGMINE METHYLSULFATE 0.5 MG/ML - 10 ML MDV ONE (14:04)
[2022-09-18] MEDS ORDERED: KETOROLAC TROMETHAMINE 15 MG/ML VIAL IVPUSH PRN (15:07)
[2022-09-18] MEDS ORDERED: oxyCODONE HCL 5 MG TABLET PO PRN ×2 (15:21→17:19)
[2022-09-18] MEDS ORDERED: PROMETHAZINE HCL 25 MG/1 ML VIAL IVPUSH ONE ×2 (16:05→16:13)
[2022-09-18] MEDS ORDERED: HYDROmorphone HCl 2 MG/ML VIAL IVPUSH PRN ×2 (17:15)
[2022-09-18] MEDS ORDERED: KETOROLAC TROMETHAMINE 30 MG/1 ML VIAL IVPUSH ONE (17:17)
[2022-09-18] MEDS ORDERED: HYDROmorphone HCl 2 MG/ML VIAL IVPUSH ONE ×3 (17:23→19:09)
[2022-09-18] MEDS ORDERED: KETOROLAC TROMETHAMINE 30 MG/1 ML VIAL IM ONE (17:23)
[2022-09-18] MEDS ORDERED: cefOXitin SODIUM 1 GM/10 ML PUSH (RESTRICTED TO ID) IVPUSH SCH (20:00)
[2022-09-18] MEDS: LACTATED RINGERS SOLUTION 1,000 ML/1,000 ML INFUS.BAG IV SCH (20:46)
[2022-09-18] MEDS: ACETAMINOPHEN 1000 MG/100 ML BAG IVPB SCH (20:47)
[2022-09-18] MEDS: CEFOXITIN SODIUM 1 GM in DEXTROSE 5%-WATER 100 ML IVPB SCH (20:47)
[2022-09-18] MEDS ORDERED: ACETAMINOPHEN 1000 MG/100 ML BAG IVPB PRN (21:00)
[2022-09-18] MEDS: MONTELUKAST NA 10 MG TABLET PO SCH (21:01)
[2022-09-18] MEDS: busPIRone HCL 10 MG TABLET (FP) PO SCH (21:01)
[2022-09-18] MEDS: ENOXAPARIN NA (PORCINE) 40 MG/0.4 ML DISP.SYRIN SQ SCH (21:01)
[2022-09-19] MEDS: oxyCODONE HCL 5 MG TABLET PO PRN ×4 (00:38→17:42)
[2022-09-19] MEDS: ACETAMINOPHEN 1000 MG/100 ML BAG IVPB SCH ×4 (01:28→18:27)
[2022-09-19] MEDS: CEFOXITIN SODIUM 1 GM in DEXTROSE 5%-WATER 100 ML IVPB SCH (05:52)
[2022-09-19] MEDS: busPIRone HCL 10 MG TABLET (FP) PO SCH ×2 (10:17→21:41)
[2022-09-19] MEDS: ENOXAPARIN NA (PORCINE) 40 MG/0.4 ML DISP.SYRIN SQ SCH (10:17)
[2022-09-19 10:57] LABS: BASO % 0.5 % (0-2.0); HEMATOCRIT 28.9 % (32.4-45.2); HEMOGLOBIN 8.8 GM/dL (10.7-15.3); MCHC 30.3 g/dl (32.0-36.0); MEAN PLT VOLUME 8.7 fl (7.5-11.1); MONO % 10.4 % (3.8-10.2); NEUT % 78.1 % (42.8-82.8); PLATELET COUNT 589 10^3/uL (134-434); RBC 4.52 M/mm3 (3.60-5.2); RDW 36.7 % (11.6-15.6); WHITE BLOOD COUNT 11.8 K/mm3 (4.0-10.0)
[2022-09-19 11:02] LABS: MCH 19.4 pg (25.7-33.7)
[2022-09-19 11:17] LABS: CALCIUM 8.8 mg/dL (8.5-10.1)
[2022-09-19 11:18] LABS: BLOOD UREA NITROGEN 10.5 mg/dL (7-18); CREATININE 0.6 mg/dL (0.55-1.3); MAGNESIUM 2.2 mg/dL (1.8-2.4); PHOSPHOROUS 3.4 mg/dL (2.5-4.9)
[2022-09-19 12:01] LABS: ANISOCYTOSIS 2+; MACROCYTOSIS 0
[2022-09-19] MEDS: LACTATED RINGERS SOLUTION 1,000 ML/1,000 ML INFUS.BAG IV SCH ×2 (15:17→22:51)
[2022-09-19] MEDS ORDERED: ALBUTEROL SO4 HFA INHALER IH PRN (17:05)
[2022-09-19] MEDS ORDERED: IBUPROFEN 600 MG TABLET (FP) PO PRN (18:18)
[2022-09-19] MEDS: MONTELUKAST NA 10 MG TABLET PO SCH (21:41)
[2022-09-20] MEDS: ACETAMINOPHEN 1000 MG/100 ML BAG IVPB SCH ×2 (00:21→06:25)
[2022-09-20] MEDS: LACTATED RINGERS SOLUTION 1,000 ML/1,000 ML INFUS.BAG IV SCH (06:25)
[2022-09-20 08:03] LABS: BASO % 0.8 % (0-2.0); EOS % 1.5 % (0-4.5); HEMATOCRIT 24.6 % (32.4-45.2); HEMOGLOBIN 7.8 GM/dL (10.7-15.3); LYMPH % 14.7 % (8-40); MCH 20.4 pg (25.7-33.7); MCHC 31.5 g/dl (32.0-36.0); MEAN CELL VOLUME 64.7 fl (80-96); MEAN PLT VOLUME 8.7 fl (7.5-11.1); MONO % 10.3 % (3.8-10.2); NEUT % 72.7 % (42.8-82.8); PLATELET COUNT 513 10^3/uL (134-434); RBC 3.81 M/mm3 (3.60-5.2); RDW 36.2 % (11.6-15.6); WHITE BLOOD COUNT 9.2 K/mm3 (4.0-10.0)
[2022-09-20 08:18] LABS: BLOOD UREA NITROGEN 5.3 mg/dL (7-18)
[2022-09-20 08:19] LABS: CALCIUM 7.8 mg/dL (8.5-10.1); MAGNESIUM 1.7 mg/dL (1.8-2.4)
[2022-09-20 08:21] LABS: CREATININE 0.5 mg/dL (0.55-1.3); PHOSPHOROUS 2.5 mg/dL (2.5-4.9)
[2022-09-20] MEDS ORDERED: FLU VACC QS2022-23(6MOS UP)/PF 60 MCG/0.5 ML SYRINGE IM ONE (10:00)
[2022-09-20] MEDS: busPIRone HCL 10 MG TABLET (FP) PO SCH ×2 (11:04→21:07)
[2022-09-20] MEDS: ENOXAPARIN NA (PORCINE) 40 MG/0.4 ML DISP.SYRIN SQ SCH (11:04)
[2022-09-20] MEDS: ACETAMINOPHEN 500 MG TABLET (FP) PO SCH ×2 (14:18→21:07)
[2022-09-20] MEDS ORDERED: MAGNESIUM 2GM/50ML STERILE WATER IVPB IVPB ONE (15:07)
[2022-09-20] MEDS ORDERED: MAGNESIUM SULF 50% (8.12 MEQ/2 ML-1 GM VIAL) IVPB ONE (15:46)
[2022-09-20 20:58] VITALS: RESP 18
[2022-09-20] MEDS: MONTELUKAST NA 10 MG TABLET PO SCH (21:06)
[2022-09-20] MEDS: oxyCODONE HCL 5 MG TABLET PO PRN (23:08)
[2022-09-21] MEDS: ACETAMINOPHEN 500 MG TABLET (FP) PO SCH ×2 (06:00→14:49)
[2022-09-21 09:57] LABS: BASO % 1.1 % (0-2.0); EOS % 2.6 % (0-4.5); HEMATOCRIT 30.7 % (32.4-45.2); HEMOGLOBIN 9.3 GM/dL (10.7-15.3); LYMPH % 16.1 % (8-40); MCHC 30.2 g/dl (32.0-36.0); MEAN CELL VOLUME 64.5 fl (80-96); MEAN PLT VOLUME 8.8 fl (7.5-11.1); MONO % 7.9 % (3.8-10.2); NEUT % 72.3 % (42.8-82.8); PLATELET COUNT 594 10^3/uL (134-434); RBC 4.76 M/mm3 (3.60-5.2); WHITE BLOOD COUNT 9.3 K/mm3 (4.0-10.0)
[2022-09-21 10:08] LABS: MCH 19.5 pg (25.7-33.7)
[2022-09-21] MEDS: busPIRone HCL 10 MG TABLET (FP) PO SCH (10:09)
[2022-09-21] MEDS: ENOXAPARIN NA (PORCINE) 40 MG/0.4 ML DISP.SYRIN SQ SCH (10:09)
[2022-09-21 10:26] LABS: BLOOD UREA NITROGEN 4.9 mg/dL (7-18)
[2022-09-21 10:30] LABS: CREATININE 0.6 mg/dL (0.55-1.3); PHOSPHOROUS 3.2 mg/dL (2.5-4.9)
[2022-09-21 16:05] VITALS: BP 144/79; PULSE 82; TEMP 98.9
== END 2022-09-21 16:20 | disposition home health service (06) | DRG 221 ==
LOC: J2C 04:16 → J5S 19:59
PROVIDERS: ADMIT Surgery; ATTEND Internal Medicine
PROC: 0DTG0ZZ Resection of Left Large Intestine, Open Approach (ICD-10-PCS; principal; 2022-09-18 09:30)
DX: C18.6 Malignant neoplasm of descending colon (principal); D50.9 Iron deficiency anemia, unspecified; J45.909 Unspecified asthma, uncomplicated; F41.9 Anxiety disorder, unspecified
CPT/HCPCS: 36415; 80048; 81025; 83735; 84100; 85025; 86140; 86850; 86900; 86901; 88307-TC; 88309-TC; 94760; C9803-CS; J1644; U0003; U0005

== ENCOUNTER 2022-10-30 22:06 | Observation (INO) | payer OTHER ==
[2022-10-31] MEDS ORDERED: MECLIZINE HCL 25 MG TABLET (FP) PO ONE ×2 (01:29→03:14)
[2022-10-31] MEDS ORDERED: METOCLOPRAMIDE HCL INJECTION 10 MG/2 ML VIAL IM ONE (01:29)
[2022-10-31] MEDS ORDERED: MECLIZINE HCL 25 MG TABLET (FP) ONE ×4 (01:42→15:26)
[2022-10-31] MEDS ORDERED: METOCLOPRAMIDE HCL INJECTION 10 MG/2 ML VIAL ONE (01:43)
[2022-10-31] MEDS ORDERED: LACTATED RINGERS SOLUTION 1000 ML INFUS.BAG IV ONE (03:13)
[2022-10-31] MEDS ORDERED: diazePAM 5 MG TABLET PO ONE ×2 (03:13→05:06)
[2022-10-31 03:34] LABS: BASO % 1.1 % (0-2.0); EOS % 0.7 % (0-4.5); HEMATOCRIT 33.7 % (32.4-45.2); HEMOGLOBIN 10.5 GM/dL (10.7-15.3); LYMPH % 27.6 % (8-40); MCH 20.9 pg (25.7-33.7); MEAN CELL VOLUME 67.4 fl (80-96); MEAN PLT VOLUME 8.1 fl (7.5-11.1); MONO % 7.9 % (3.8-10.2); NEUT % 62.7 % (42.8-82.8); PLATELET COUNT 381 10^3/uL (134-434); RBC 4.99 M/mm3 (3.60-5.2); RDW 28.3 % (11.6-15.6); WHITE BLOOD COUNT 8.2 K/mm3 (4.0-10.0)
[2022-10-31 04:10] LABS: ALBUMIN 3.6 g/dl (3.4-5.0); BLOOD UREA NITROGEN 10.2 mg/dL (7-18); CALCIUM 8.8 mg/dL (8.5-10.1)
[2022-10-31 04:13] LABS: CREATININE 0.6 mg/dL (0.55-1.3)
[2022-10-31 04:15] LABS: BILIRUBIN,TOTAL 0.3 mg/dL (0.2-1); TOT PROT 7.1 g/dl (6.4-8.2)
[2022-10-31] MEDS ORDERED: diazePAM 5 MG TABLET ONE (05:17)
[2022-10-31 07:15] LABS: ANISOCYTOSIS 2+; MACROCYTOSIS 0; OVALOCYTE 1+
[2022-10-31] MEDS: ASCORBIC ACID 500 MG TABLET (FP) PO SCH (10:30)
[2022-10-31] MEDS: busPIRone HCL 10 MG TABLET (FP) PO SCH ×2 (10:30→21:31)
[2022-10-31] MEDS: FAMOTIDINE 20 MG TABLET PO SCH (10:30)
[2022-10-31] MEDS: POLYETHYLENE GLYCOL (HEALTHYLAX) 3350 17 GM PACKET PO SCH (10:30)
[2022-10-31] MEDS: MECLIZINE HCL 25 MG TABLET (FP) PO SCH ×3 (10:30→21:31)
[2022-10-31] MEDS ORDERED: POLYETHYLENE GLYCOL (HEALTHYLAX) 3350 17 GM PACKET ONE (10:44)
[2022-10-31] MEDS ORDERED: FAMOTIDINE 20 MG TABLET ONE (10:45)
[2022-10-31] MEDS ORDERED: ASCORBIC ACID 500 MG TABLET (FP) ONE (10:45)
[2022-10-31 18:45] VITALS: BMI 35.9
[2022-11-01] MEDS: MECLIZINE HCL 25 MG TABLET (FP) PO SCH (05:44)
[2022-11-01] MEDS: busPIRone HCL 10 MG TABLET (FP) PO SCH (10:12)
[2022-11-01] MEDS: POLYETHYLENE GLYCOL (HEALTHYLAX) 3350 17 GM PACKET PO SCH (10:12)
[2022-11-01] MEDS: FAMOTIDINE 20 MG TABLET PO SCH (10:13)
[2022-11-01] MEDS: ASCORBIC ACID 500 MG TABLET (FP) PO SCH (10:13)
[2022-11-01 12:34] VITALS: BP 140/86; PULSE 56; RESP 16; TEMP 98
== END 2022-11-01 12:49 | disposition home or self-care (01) ==
LOC: JER 22:06 → JERBED 10-31 05:04 → J4W 10-31 17:50
PROVIDERS: ADMIT Internal Medicine; ATTEND Internal Medicine
PROC: 3E0337Z Introduction of Electrolytic and Water Balance Substance into Peripheral Vein, Percutaneous Approach (ICD-10-PCS; principal; 2022-10-31)
PROC: 3E023GC Introduction of Other Therapeutic Substance into Muscle, Percutaneous Approach (ICD-10-PCS; 2022-10-31)
DX: H81.10 Benign paroxysmal vertigo, unspecified ear (principal); F41.9 Anxiety disorder, unspecified; Z29.8 Encounter for other specified prophylactic measures; Z85.038 Personal history of other malignant neoplasm of large intestine; J45.909 Unspecified asthma, uncomplicated
CPT/HCPCS: 0241U-QW; 36415; 70450-TC; 71046-TC-FY; 80053; 84484; 84703; 85025; 93005; 93010; 96360; 96372; 97116-GP; 97162-GP; 99285-25; G0378

== ENCOUNTER 2023-02-20 04:22 | Day surgery (SDC) | payer OTHER ==
[~2023-02-20 04:22] MED LIST changes: +ACETAMINOPHEN 325 MG TABLET (FP) PO PRN; -BUPIVACAINE HCL/PF 0.25% (2.5MG/ML) 10 ML VIAL IJ ONE
[2023-02-20] MEDS ORDERED: TETRACAINE 0.5% OPHTH SOLN 2 ML BOTTLE ONE (07:18)
[2023-02-20] MEDS ORDERED: LIDOCAINE HCL/PF 1% SDV 5ML VIAL ONE (07:18)
[2023-02-20] MEDS ORDERED: POVIDONE-IODINE 5% OPHTHALMIC PREP 30 ML SOLUTION ONE (07:18)
[2023-02-20 08:28] VITALS: BMI 31.3
[2023-02-20 08:29] VITALS: RESP 20
[2023-02-20] MEDS ORDERED: KETOROLAC TROMETHAMINE 0.5% EYE DROP 1 DROP DROPS ONE (08:31)
[2023-02-20] MEDS ORDERED: PHENYLEPHRINE 2.5% OPTHALMIC DROP 2ML BOTTLE ONE (08:31)
[2023-02-20] MEDS ORDERED: TROPICAMIDE 1% 3 ML EYE DROPS ONE (08:31)
[2023-02-20] MEDS ORDERED: OFLOXACIN 0.3% OPHTHALMIC SOLUTION 5 ML BOTTLE ONE (08:31)
[2023-02-20] MEDS ORDERED: CYCLOPENTOLATE HCL 1% OPHTH SOLN 2 ML BOTTLE ONE (08:31)
[2023-02-20] MEDS: OFLOXACIN 0.3% OPHTHALMIC SOLUTION 5 ML BOTTLE OP SCH ×3 (08:45→09:05)
[2023-02-20] MEDS: CYCLOPENTOLATE HCL 1% OPHTH SOLN 2 ML BOTTLE OP SCH ×3 (08:46→09:00)
[2023-02-20] MEDS: KETOROLAC TROMETHAMINE 0.5% EYE DROP 1 DROP DROPS OP SCH ×3 (08:46→09:00)
[2023-02-20] MEDS: TROPICAMIDE 1% OPHTH SOLN 15 ML BOTTLE OP SCH ×3 (08:47→09:00)
[2023-02-20] MEDS: PHENYLEPHRINE 2.5% OPHTH SOLN 15 ML BOTTLE OP SCH ×3 (08:47→09:05)
[2023-02-20] MEDS ORDERED: TETRACAINE 0.5% OPHTH SOLN 2 ML BOTTLE OS ONE (09:57)
[2023-02-20] MEDS ORDERED: POVIDONE-IODINE 5% OPHTHALMIC PREP 30 ML SOLUTION OS ONE (09:58)
[2023-02-20] MEDS ORDERED: BSS (NA/CA/MG/K) BALANCED SALT SOLUTION OPHTH SOLN 15 ML BOTTLE IO ONE (10:04)
[2023-02-20] MEDS ORDERED: LIDOCAINE HCL 1% PRESERVATIVE FREE - 30ML VIAL IO ONE (10:05)
[2023-02-20] MEDS ORDERED: CHONDROITIN SU A/HYALUR SOD 1 KIT IO ONE (10:06)
[2023-02-20] MEDS ORDERED: EPINEPHrine/PF 1 MG/1 ML (1:1,000) AMPULE SQ ONE (10:10)
[2023-02-20 14:13] VITALS: BP 127/76; PULSE 75; TEMP 98.2
== END 2023-02-20 12:35 | disposition home or self-care (01) ==
LOC: JASU-SURG 04:22
PROVIDERS: ATTEND Ophthalmology
PROC: 08RK3JZ Replacement of Left Lens with Synthetic Substitute, Percutaneous Approach (ICD-10-PCS; principal; 2023-02-20 10:00)
DX: H26.9 Unspecified cataract (principal)
CPT/HCPCS: 81025; V2632

== ENCOUNTER 2023-10-03 14:53 | Day surgery (SDC) | payer OTHER ==
[~2023-10-03 14:53] MED LIST changes: -ACETAMINOPHEN 325 MG TABLET (FP) PO PRN; +FERRIC CARBOXYMALTOSE 750 MG in SODIUM CHLORIDE 250 ML IVPB ONE
[2023-10-03 17:32] VITALS: RESP 18; TEMP 98.1
[2023-10-03 17:35] VITALS: BP 128/85; PULSE 71
== END 2023-10-03 16:20 | disposition home or self-care (01) ==
LOC: JONCNONCHE 14:53 → J7W 14:54 → JONCNONCHE 16:20
PROVIDERS: ATTEND Internal Medicine Hematology & Oncology
PROC: 3E033GC Introduction of Other Therapeutic Substance into Peripheral Vein, Percutaneous Approach (ICD-10-PCS; principal; 2023-10-03)
DX: E61.1 Iron deficiency (principal)
CPT/HCPCS: 96365; J1439

== ENCOUNTER 2023-10-11 15:15 | Day surgery (SDC) | payer OTHER ==
[2023-10-11 17:00] VITALS: RESP 18; TEMP 97.8
[2023-10-11 17:04] VITALS: BP 126/67; PULSE 62
== END 2023-10-11 16:40 | disposition home or self-care (01) ==
LOC: JONCNONCHE 15:15
PROVIDERS: ATTEND Internal Medicine Hematology & Oncology
PROC: 3E033GC Introduction of Other Therapeutic Substance into Peripheral Vein, Percutaneous Approach (ICD-10-PCS; principal; 2023-10-11)
DX: D50.9 Iron deficiency anemia, unspecified (principal)
CPT/HCPCS: 96365; J1439

== ENCOUNTER 2024-06-18 12:48 | Emergency (ER) | payer OTHER ==
[2024-06-18] MEDS ORDERED: FENTANYL CITRATE/PF 50 MCG/ML VIAL ONE ×4 (13:25→16:53)
[2024-06-18 13:30] VITALS: BMI 34.7
[2024-06-18 13:31] LABS: BASO % 0.3 % (0-2.0); EOS % 0.9 % (0-4.5); HEMATOCRIT 39.7 % (32.4-45.2); HEMOGLOBIN 13.1 GM/dL (10.7-15.3); INR 0.94 (0.83-1.09); LYMPH % 9.9 % (8-40); MCH 26.5 pg (25.7-33.7); MCHC 33.1 g/dl (32.0-36.0); MEAN PLT VOLUME 8.2 fl (7.5-11.1); NEUT % 79.9 % (42.8-82.8); PLATELET COUNT 311 10^3/uL (134-434); PROTHROMBIN TIME (PATIENT) 10.6 SEC (9.7-13.0); RBC 4.96 M/mm3 (3.60-5.2); RDW 16.7 % (11.6-15.6); WHITE BLOOD COUNT 12.2 K/mm3 (4.0-10.0)
[2024-06-18 13:34] LABS: ACTIVATED PTT 25.1 SECONDS (25.2-36.5)
[2024-06-18 13:47] LABS: POTASSIUM 4.6 mmol/L (3.5-5.1)
[2024-06-18 13:49] LABS: BLOOD UREA NITROGEN 16.9 mg/dL (7-18)
[2024-06-18 13:52] LABS: CREATININE 0.9 mg/dL (0.55-1.3)
[2024-06-18 13:54] LABS: BILIRUBIN,TOTAL 0.4 mg/dL (0.2-1); TOT PROT 7.8 g/dl (6.4-8.2)
[2024-06-18] MEDS ORDERED: MIDAZOLAM HCL 2 MG/2 ML SINGLE DOSE VIAL ONE (14:22)
[2024-06-18] MEDS ORDERED: ONDANSETRON 4 MG/2 ML VIAL ONE (14:53)
[2024-06-18] MEDS: MIDAZOLAM HCL 2 MG/2 ML SINGLE DOSE VIAL IVPUSH ONE (14:55)
[2024-06-18] MEDS: ONDANSETRON 4 MG/2 ML VIAL IVPUSH ONE (15:14)
[2024-06-18] MEDS ORDERED: LIDOCAINE HCL 1%, 10 MG/ML (20ML VIAL) ONE (16:01)
[2024-06-18] MEDS: LIDOCAINE HCL 1%, 10 MG/ML (50 mL VIAL) SQ ONE (17:05)
[2024-06-18 20:52] VITALS: BP 157/89; PULSE 70; RESP 18; TEMP 98.1
== END 2024-06-18 20:57 | disposition home or self-care (01) ==
LOC: JER 12:48
PROC: 3E033GC Introduction of Other Therapeutic Substance into Peripheral Vein, Percutaneous Approach (ICD-10-PCS; principal; 2024-06-18)
PROC: 3E033GC Introduction of Other Therapeutic Substance into Peripheral Vein, Percutaneous Approach (ICD-10-PCS; 2024-06-18)
PROC: 3E033GC Introduction of Other Therapeutic Substance into Peripheral Vein, Percutaneous Approach (ICD-10-PCS; 2024-06-18)
PROC: 3E033GC Introduction of Other Therapeutic Substance into Peripheral Vein, Percutaneous Approach (ICD-10-PCS; 2024-06-18)
PROC: 3E033GC Introduction of Other Therapeutic Substance into Peripheral Vein, Percutaneous Approach (ICD-10-PCS; 2024-06-18)
DX: S43.004A Unspecified dislocation of right shoulder joint, initial encounter (principal); Y04.0XXA Assault by unarmed brawl or fight, initial encounter
CPT/HCPCS: 36415; 70450-TC; 70486-TC; 72125-TC; 73030-TC-RT-FY; 73200-TC-RT; 80053; 84703; 85025; 85610; 85730; 86850; 86900; 86901; 99285-25